=== PATIENT | male | born 1990 | race American Indian/Alaskan Native ===

== ENCOUNTER 2017-08-05 10:26 | Emergency (ER) | payer SELFPAY ==
[2017-08-05 10:35] VITALS: BP 138/75
== END 2017-08-05 12:22 | disposition left against medical advice (07) ==
LOC: ED 10:26
DX: R05 Cough (principal); Z53.21 Procedure and treatment not carried out due to patient leaving prior to being seen by health care provider

== ENCOUNTER 2020-12-29 19:50 | Emergency (ER) | payer OTHER ==
[2020-12-29 20:45] VITALS: BP 138/81
[2020-12-29] MEDS ORDERED: IBUPROFEN 600 MG TAB PO ONE (21:14)
[2020-12-29] MEDS ORDERED: ACETAMINOPHEN 500 MG TAB PO ONE (21:14)
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
--- NOTE | 2020-12-29 23:08 | XRay Report ---
Right shoulder 3 views INDICATION: Injury FINDINGS: No acute fracture or dislocation. AC joint appears intact. Visualized portions of the scapu la appear normal. IMPRESSION: No acute fracture is seen. Signer Name: Noé Dubois MD Signed: 12/29/2020 11:04 PM Workstation Name: [id number]
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
== END 2020-12-29 23:48 | disposition home or self-care (01) ==
LOC: ED 19:50
DX: S43.401A Unspecified sprain of right shoulder joint, initial encounter (principal); M62.830 Muscle spasm of back; Z79.899 Other long term (current) drug therapy; Z98.890 Other specified postprocedural states; V49.49XA Driver injured in collision with other motor vehicles in traffic accident, initial encounter; Y92.410 Unspecified street and highway as the place of occurrence of the external cause; Y93.89 Activity, other specified; Y99.8 Other external cause status
CPT/HCPCS: 72100; 99283